=== PATIENT | female | born 1950 | race Hispanic/Latino ===

== ENCOUNTER 2018-04-14 13:27 | Emergency (ER) | payer OTHER ==
[2018-04-14 14:09] LABS: Urine Blood TRACE (NEG); Urine Glucose 3+ (NEG); Urine Protein NEGATIVE (NEG); Urine Specific Gravity <1.005 (1.005-1.030)
[2018-04-14 14:10] LABS: Absolute Lymphocytes (CBC) 2.6 K/uL (0.7-4.9); Absolute Monocytes 0.6 K/uL (0.1-1.3); Absolute Neutrophil 3.3 K/uL (1.8-8.0); Basophils % 0.9 % (0-1.3); Eosinophils % 2.1 % (0-4.4); Hematocrit 42.6 % (36.0-45.0); MCV 87.9 fL (80-100); MPV 9.6 fL (7.6-11.3); Monocytes % 8.9 % (3.3-12.3); RBC Red Blood Cell Count 4.85 M/uL (3.86-4.86)
[2018-04-14 14:11] LABS: Protime INR 1.09
[2018-04-14 14:29] LABS: BUN Blood Urea Nitrogen 16 mg/dL (7-18); Bicarbonate 27 mmol/L (21-32); Glucose Level 135 mg/dL (74-106); NT PRO-BNP 38 pg/mL (<125); Potassium 3.6 mmol/L (3.5-5.1); Sodium Level 139 mmol/L (136-145)
--- NOTE | 2018-04-14 14:45 | RAD REPORT ---
EXAM DESCRIPTION: John Single View04/14/2018 2:29 pm CLINICAL HISTORY: Chest pain COMPARISON: October 2017 FINDINGS: The lungs appear clear of acute infiltrate. The heart is normal size IMPRESSION: No acute abnormalities displayed
[2018-04-14] MEDS ORDERED: SUCRALFATE 1GM/10ML UCUP PO ONE (15:00)
--- NOTE | 2018-04-14 15:29 | ER ---
Nurse's Notes [facility] Name: Chris Jacobs Age: 67 yrs Sex: Female : 1950 Arrival Date: 04/14/2018 Time: 13:31 Bed 6 Private MD: Diagnosis: Epigastric pain Presentation: 04/14 13:34 Presenting complaint: Patient states: Sent from urgent care. Reports sensation of aj "something coming up" in chest and throat for 4 days. Denies Diaphoresis, N/V, indigestion. Transition of care: patient was not received from another setting of care. Onset of symptoms was April 10, 2018. Risk Assessment: Do you want to hurt yourself or someone else? Patient reports no desire to harm self or others. Initial Sepsis Screen: Does the patient meet any 2 criteria? No. Patient's initial sepsis screen is negative. Does the patient have a suspected source of infection? No. Patient's initial sepsis screen is negative. Care prior to arrival: None. 13:34 Method Of Arrival: Ambulatory aj 13:34 Acuity: FRANK 3 aj Triage Assessment: 13:36 General: Appears in no apparent distress. comfortable, Behavior is calm, cooperative, aj appropriate for age. Pain: Denies pain. Neuro: Level of Consciousness is awake, alert, obeys commands, Oriented to person, place, time, situation, Appropriate for age. Cardiovascular: Reports Pressure in sternum and throat. Respiratory: Airway is patent Respiratory effort is even, unlabored, Respiratory pattern is regular, symmetrical. GI: Patient currently denies indigestion, nausea, vomiting. Derm: Skin is intact, is healthy with good turgor, Skin is pink, warm \\T\\ dry. normal. Historical: - Allergies: 13:36 No Known Allergies; aj - Home Meds: 13:36 Aspir-81 81 mg Oral TbEC 1 tab once daily [Active]; atorvastatin 10 mg Oral tab 1 tab aj once daily [Active]; Fish Oil Oral [Active]; losartan 50 mg Oral tab 1 tab once daily [Active]; Trulicity 1.5 mg/0.5 mL subcutaneous pnij 0.5 mL once wkly [Active]; Xigduo XR 5-500 mg Oral TBph 2 tabs once daily [Active]; - PMHx: 13:36 High Cholesterol; Hypertension; Tachycardia; Diabetes - IDDM; aj - PSHx: 13:36 ; aj - Immunization history:: Adult Immunizations up to date. - Social history:: Smoking status: Patient/guardian denies using tobacco. - Ebola Screening: : Patient negative for fever greater than or equal to 101.5 degrees Fahrenheit, and additional compatible Ebola Virus Disease symptoms Patient denies exposure to infectious person Patient denies travel to an Ebola-affected area in the 21 days before illness onset No symptoms or risks identified at this time. Screenin:55 Abuse screen: Denies threats or abuse. Denies injuries from another. Nutritional hj screening: No deficits noted. Tuberculosis screening: No symptoms or risk factors identified. Fall Risk None identified. Assessment: 13:55 Pain: Pain does not radiate. Pain began. hj 13:55 General: Appears in no apparent distress. uncomfortable, Behavior is calm, cooperative, hj appropriate for age. Neuro: Level of Consciousness is awake, alert, obeys commands, Oriented to person, place, time, situation, Appropriate for age. Cardiovascular: Reports chest pain, Heart tones S1 S2 present Capillary refill < 3 seconds Patient's skin is warm and dry. Respiratory: Airway is patent Respiratory effort is even, unlabored, Respiratory pattern is regular, symmetrical. GI: No signs and/or symptoms were reported involving the gastrointestinal system. : No signs and/or symptoms were reported regarding the genitourinary system. EENT: No signs and/or symptoms were reported regarding the EENT system. Derm: No signs and/or symptoms reported regarding the dermatologic system. Musculoskeletal: No signs and/or symptoms reported regarding the musculoskeletal system. 14:03 Reassessment: BP- 113/73; hold on to BP meds; MD notified;. hj 15:21 Reassessment: Patient and/or family updated on plan of care and expected duration. Pain hj level reassessed. Patient is alert, oriented x 3, equal unlabored respirations, skin warm/dry/pink. Patient states feeling better. Patient states symptoms have improved. Vital Signs: 13:36 BP 184 / 92; Pulse 85; Resp 17; Temp 98.4; Pulse Ox 99% on R/A; Weight 63.5 kg; Height aj 5 ft. 1 in. (154.94 cm) (R); 14:02 BP 113 / 73; Pulse 83; Resp 18; Pulse Ox 100% on R/A; hj 15:21 BP 107 / 67; Pulse 77; Resp 18; Pulse Ox 100% on R/A; hj 13:36 Body Mass Index 26.45 (63.50 kg, 154.94 cm) ED Course: 13:31 Patient arrived in ED. rg4 13:35 Triage completed. 13:36 Arm band placed on right wrist. Patient placed in an exam room. EKG completed in triage. Results shown to MD. 13:37 Demarcus Villegas, RN is Primary Nurse. 13:51 Hao Lamas MD is Attending Physician. 13:55 Patient has correct armband on for positive identification. Placed in gown. Bed in low hj position. Call light in reach. Side rails up X2. monitoring coordinator on. Pulse ox on. NIBP on. 13:55 Initial lab(s) drawn, by me, sent to lab. Inserted saline lock: 22 gauge in right hj antecubital area, using aseptic technique. Blood collected. 13:55 Patient maintains SpO2 saturation greater than 95% on room air. hj 14:28 XRAY Chest (1 view) In Process Unspecified. EDMS 15:36 No provider procedures requiring assistance completed. IV discontinued, intact, hj bleeding controlled, No redness/swelling at site. Pressure dressing applied. Administered Medications: 14:04 Not Given (BP- 113/73; aware;): hydrALAZINE 5 mg IV at calculated rate once hj 14:30 Drug: CarafATE 1 grams Route: PO; jb4 14:30 Follow up: Response: No adverse reaction [facility] 14:49 Follow up: Response: No adverse reaction hj Outcome: 15:28 Discharge ordered by . 15:36 Discharged to home ambulatory. hj 15:36 Condition: stable 15:36 Discharge instructions given to patient, Instructed on discharge instructions, follow up and referral plans. medication usage, Demonstrated understanding of instructions, follow-up care, medications, Prescriptions given X 1. 15:37 Patient left the ED. hj Signatures: Dispatcher [employer] EDMS Susy Shannon RN RN Demarcus Villegas RN RN hj Garcia, Rubi rg4 Carlos Lezama RN RN jb4 Hao Lamas MD MD
--- NOTE | 2018-04-14 15:29 | EDPHYS ---
Physician Documentation [facility] Name: Chris Jacobs Age: 67 yrs Sex: Female : 1950 Arrival Date: 04/14/2018 Time: 13:31 Bed 6 Private MD: ED Physician Hao Lamas HPI: 04/14 15:14 This 67 yrs old Female presents to ER via Ambulatory with complaints of Chest gs Tightness. 15:14 The patient or guardian reports chest pain that is located primarily in the anterior gs chest wall. Onset: 2 day(s) ago. The pain does not radiate. Associated signs and symptoms: Pertinent negatives: shortness of breath. The chest pain is described as tightness. Duration: The patient or guardian reports a single episode, that is still ongoing. Severity of pain: At its worst the pain was moderate in the emergency department the pain is unchanged. The patient has experienced similar episodes in the past, a few times. Historical: - Allergies: 13:36 No Known Allergies; aj - Home Meds: 13:36 Aspir-81 81 mg Oral TbEC 1 tab once daily [Active]; atorvastatin 10 mg Oral tab 1 tab aj once daily [Active]; Fish Oil Oral [Active]; losartan 50 mg Oral tab 1 tab once daily [Active]; Trulicity 1.5 mg/0.5 mL subcutaneous pnij 0.5 mL once wkly [Active]; Xigduo XR 5-500 mg Oral TBph 2 tabs once daily [Active]; - PMHx: 13:36 High Cholesterol; Hypertension; Tachycardia; Diabetes - IDDM; aj - PSHx: 13:36 ; aj - Immunization history:: Adult Immunizations up to date. - Social history:: Smoking status: Patient/guardian denies using tobacco. - Ebola Screening: : Patient negative for fever greater than or equal to 101.5 degrees Fahrenheit, and additional compatible Ebola Virus Disease symptoms Patient denies exposure to infectious person Patient denies travel to an Ebola-affected area in the 21 days before illness onset No symptoms or risks identified at this time. ROS: 15:14 All other systems are negative. gs Exam: 15:14 Head/Face: Normocephalic, atraumatic. Eyes: Pupils equal round and reactive to light, gs extra-ocular motions intact. Lids and lashes normal. Conjunctiva and sclera are non-icteric and not injected. Cornea within normal limits. Periorbital areas with no swelling, redness, or edema. ENT: Nares patent. No nasal discharge, no septal abnormalities noted. Tympanic membranes are normal and external auditory canals are clear. Oropharynx with no redness, swelling, or masses, exudates, or evidence of obstruction, uvula midline. Mucous membranes moist. Neck: Trachea midline, no thyromegaly or masses palpated, and no cervical lymphadenopathy. Supple, full range of motion without nuchal rigidity, or vertebral point tenderness. No Meningismus. Chest/axilla: Normal chest wall appearance and motion. Nontender with no deformity. No lesions are appreciated. Cardiovascular: Regular rate and rhythm with a normal S1 and S2. No gallops, murmurs, or rubs. Normal PMI, no JVD. No pulse deficits. Respiratory: Lungs have equal breath sounds bilaterally, clear to auscultation and percussion. No rales, rhonchi or wheezes noted. No increased work of breathing, no retractions or nasal flaring. Abdomen/GI: Soft, non-tender, with normal bowel sounds. No distension or tympany. No guarding or rebound. No evidence of tenderness throughout. Back: No spinal tenderness. No costovertebral tenderness. Full range of motion. Skin: Warm, dry with normal turgor. Normal color with no rashes, no lesions, and no evidence of cellulitis. MS/ Extremity: Pulses equal, no cyanosis. Neurovascular intact. Full, normal range of motion. Neuro: Awake and alert, GCS 15, oriented to person, place, time, and situation. Cranial nerves II-XII grossly intact. Motor strength 5/5 in all extremities. Sensory grossly intact. Cerebellar exam normal. Normal gait. 15:14 Constitutional: The patient appears alert, awake. 15:14 ECG was reviewed by the Attending Physician. Vital Signs: 13:36 BP 184 / 92; Pulse 85; Resp 17; Temp 98.4; Pulse Ox 99% on R/A; Weight 63.5 kg; Height aj 5 ft. 1 in. (154.94 cm) (R); 14:02 BP 113 / 73; Pulse 83; Resp 18; Pulse Ox 100% on R/A; hj 15:21 BP 107 / 67; Pulse 77; Resp 18; Pulse Ox 100% on R/A; hj 13:36 Body Mass Index 26.45 (63.50 kg, 154.94 cm) aj MDM: 14:04 Patient medically screened. gs 15:14 Differential diagnosis: coronary artery disease chest wall pain, gastroesophageal gs reflux disease (GERD). Data reviewed: vital signs, nurses notes. Response to treatment: the patient's symptoms have resolved after treatment, and as a result, I will discharge patient. 04/14 13:53 Order name: Basic Metabolic Panel; Complete Time: 14:31 04/14 13:53 Order name: CBC with Diff; Complete Time: 14:31 04/14 13:53 Order name: NT PRO-BNP; Complete Time: 14:31 04/14 13:53 Order name: PT-INR; Complete Time: 14:31 04/14 13:53 Order name: Troponin (emerg Dept Use Only); Complete Time: 14:31 04/14 13:59 Order name: Urine Dipstick--Ancillary (enter results); Complete Time: 14:31 04/14 13:53 Order name: XRAY Chest (1 view); Complete Time: 15:09 04/14 13:53 Order name: EKG; Complete Time: 13:53 04/14 13:53 Order name: Cardiac monitoring; Complete Time: 14:00 04/14 13:53 Order name: EKG - Nurse/Tech; Complete Time: 14:00 04/14 13:53 Order name: IV Saline Lock; Complete Time: 14:00 04/14 13:53 Order name: Labs collected and sent; Complete Time: 14:00 04/14 13:53 Order name: O2 Per Protocol; Complete Time: 14:00 04/14 13:53 Order name: O2 Sat Monitoring; Complete Time: 14:00 04/14 13:53 Order name: Urine Dipstick-Ancillary (obtain specimen); Complete Time: 14:00 gs EC:14 Rate is 81 beats/min. Rhythm is regular. TN interval is normal. QRS interval is normal. gs T waves are Normal. No ST changes noted. Clinical impression: Normal ECG. Interpreted by me. Administered Medications: 14:04 Not Given (BP- 113/73; MD aware;): hydrALAZINE 5 mg IV at calculated rate once hj 14:30 Drug: CarafATE 1 grams Route: PO; jb4 14:30 Follow up: Response: No adverse reaction jb4 14:49 Follow up: Response: No adverse reaction hj Disposition: 04/14/18 15:28 Discharged to Home. Impression: Epigastric pain. - Condition is Stable. - Discharge Instructions: Abdominal Pain, Adult, Nonspecific Chest Pain. - Prescriptions for Carafate 100 mg/mL Oral suspension - take 10 milliliter by ORAL route 4 times per day As needed on an empty stomach 1 hour before meals and at bedtime; 250 milliliter. - Medication Reconciliation Form, Thank You Letter, Antibiotic Education, Prescription Opioid Use form. - Follow up: Private Physician; When: 2 - 3 days; Reason: Re-evaluation by your physician. Signatures: Dispatcher [employer] EDSusy Currie RN Demarcus Bartlett RN RN Carlos Lawton RN RN jb4 Hao Lamas MD MD gs Corrections: (The following items were deleted from the chart) 15:37 15:28 04/14/2018 15:28 Discharged to Home. Impression: Epigastric pain. Condition is hj Stable. Forms are Medication Reconciliation Form, Thank You Letter, Antibiotic Education, Prescription Opioid Use. Follow up: Private Physician; When: 2 - 3 days; Reason: Re-evaluation by your physician. gs
--- NOTE | 2018-04-16 07:53 | EKG ---
Test Date: 2018-04-14 Test Time: 13:38:43 Wire Stitcher Operator: FAUSTO MEASUREMENT RESULTS: Intervals: Rate: 81 AK: 144 QRSD: 88 QT: 402 QTc: 466 Keyes: P: -24 AK: 144 QRS: 53 T: 28 INTERPRETIVE STATEMENTS: Normal sinus rhythm Normal ECG Compared to ECG 11/11/2017 00:55:19 No significant changes Electronically Signed On 04-16-18 07:51:28 CDT by Carlos Guerin
== END 2018-04-14 15:37 | disposition home or self-care (01) ==
LOC: ER 13:27
DX: R10.13 Epigastric pain (principal); E78.00 Pure hypercholesterolemia, unspecified; I10 Essential (primary) hypertension; E11.9 Type 2 diabetes mellitus without complications; Z79.4 Long term (current) use of insulin
CPT/HCPCS: 36415; 71045; 80048; 81003; 83880; 84484; 85025; 85610; 93005; 99285

== ENCOUNTER 2018-07-14 20:56 | Emergency (ER) | payer OTHER ==
[2018-07-14] MEDS ORDERED: ASPIRIN 81 MG CHEWABLE TABLET ONE (21:16)
[2018-07-14] MEDS ORDERED: METOPROLOL TARTRATE 5 MG/5 ML INJ IV ONE (21:16)
[2018-07-14 21:44] LABS: Absolute Lymphocytes (CBC) 4.1 K/uL (0.7-4.9); Absolute Monocytes 0.7 K/uL (0.1-1.3); Absolute Neutrophil 2.8 K/uL (1.8-8.0); Basophils % 1.2 % (0-1.3); Eosinophils % 2.2 % (0-4.4); Hematocrit 44.3 % (36.0-45.0); Lymphocytes % 52.5 % (15.3-44.8); MCH 30.5 pg (27.0-35.0); MCV 90.2 fL (80-100); MPV 9.7 fL (7.6-11.3); Monocytes % 9.1 % (3.3-12.3); RBC Red Blood Cell Count 4.91 M/uL (3.86-4.86)
[2018-07-14 21:47] LABS: Protime INR 1.01
[2018-07-14 21:55] LABS: Urine Blood NEGATIVE (NEG); Urine Glucose 2+ (NEG); Urine Protein NEGATIVE (NEG); Urine pH 6.5 (5.0-7.0)
--- NOTE | 2018-07-14 22:18 | RAD REPORT ---
EXAM DESCRIPTION: RAD - Chest Single View - 07/14/2018 10:11 pm CLINICAL HISTORY: CHEST PAIN Chest pain. COMPARISON: Chest Single View dated 04/14/2018; Chest Single View dated 11/10/2017 FINDINGS: Portable technique limits examination quality. The lungs are grossly clear. The heart is normal in size. No displaced fractures. IMPRESSION: No acute intrathoracic process suspected.
[2018-07-14 22:28] LABS: ALT/SGPT 48 U/L (12-78); AST/SGOT 37 U/L (15-37); Albumin 4.2 g/dL (3.4-5.0); Alkaline Phosphatase 148 U/L (45-117); BUN Blood Urea Nitrogen 18 mg/dL (7-18); Bicarbonate 26 mmol/L (21-32); Bilirubin Direct 0.1 mg/dL (0-0.2); Bilirubin Total 0.6 mg/dL (0.2-1.0); Glucose Level 168 mg/dL (74-106); Magnesium 2.1 mg/dL (1.8-2.4); NT PRO-BNP 39 pg/mL (<125); Potassium 3.8 mmol/L (3.5-5.1); Protein, Total 7.8 g/dL (6.4-8.2); Sodium Level 140 mmol/L (136-145); Troponin (Emerg Dept Use Only) < 0.02 ng/mL (0.0-0.045)
--- NOTE | 2018-07-15 00:18 | ER ---
Nurse's Notes [facility] Name: Chris Jacobs Age: 67 yrs Sex: Female : 1950 Arrival Date: 07/14/2018 Time: 20:59 Bed 4 Private MD: Diagnosis: Chest pain. Palpitations. Presentation: 07/14 21:03 Presenting complaint: Patient states: Every once and a while my heart starts racing, la1 its happening now and I am having chest pain. Transition of care: patient was not received from another setting of care. Onset of symptoms was July 14, 2018. Risk Assessment: Do you want to hurt yourself or someone else? Patient reports no desire to harm self or others. Initial Sepsis Screen: Does the patient meet any 2 criteria? No. Patient's initial sepsis screen is negative. Does the patient have a suspected source of infection? No. Patient's initial sepsis screen is negative. Care prior to arrival: None. 21:03 Method Of Arrival: Wheelchair la1 21:03 Acuity: FRANK 2 la1 Triage Assessment: 21:20 General: Appears in no apparent distress. uncomfortable, Behavior is. ao Historical: - Allergies: 21:29 No Known Allergies; ao - Home Meds: 21:29 Aspir-81 81 mg Oral TbEC 1 tab once daily [Active]; atorvastatin 10 mg Oral tab 1 tab ao once daily [Active]; Xigduo XR 5-500 mg oral TBph 2 tabs once daily [Active]; losartan 50 mg Oral tab 1 tab once daily [Active]; Fish Oil Oral [Active]; Trulicity 1.5 mg/0.5 mL subcutaneous pnij 0.5 mL once wkly [Active]; - PMHx: 21:29 Diabetes - IDDM; High Cholesterol; Hypertension; Tachycardia; ao - PSHx: 21:29 ; ao - Immunization history:: Adult Immunizations up to date. - Social history:: Smoking status: Patient/guardian denies using tobacco. - Ebola Screening: : Patient negative for fever greater than or equal to 101.5 degrees Fahrenheit, and additional compatible Ebola Virus Disease symptoms Patient denies exposure to infectious person Patient denies travel to an Ebola-affected area in the 21 days before illness onset. Screenin:20 Abuse screen: Denies threats or abuse. Denies injuries from another. Nutritional ao screening: No deficits noted. Tuberculosis screening: No symptoms or risk factors identified. Fall Risk None identified. Assessment: 21:21 General: Appears in no apparent distress. comfortable, Behavior is calm, cooperative, ao appropriate for age. Pain: Complains of pain in chest Pain does not radiate. Pain currently is 6 out of 10 on a pain scale. Neuro: Level of Consciousness is awake, alert, obeys commands, Oriented to person, place, time, situation, Appropriate for age Moves all extremities. Full function Speech is normal, Facial symmetry appears normal. Cardiovascular: No deficits noted. Respiratory: Airway is patent Respiratory effort is even, unlabored, Respiratory pattern is regular, symmetrical. GI: Abdomen is obese. : No signs and/or symptoms were reported regarding the genitourinary system. EENT: No signs and/or symptoms were reported regarding the EENT system. Derm: Skin is intact, Skin is pink, warm \T\ dry. normal, Skin temperature is warm. Musculoskeletal: Circulation, motion, and sensation intact. Range of motion: intact in all extremities. 22:19 Reassessment: Patient appears in no apparent distress at this time. Patient and/or ao family updated on plan of care and expected duration. Pain level reassessed. 23:29 Reassessment: Patient appears in no apparent distress at this time. Patient and/or ao family updated on plan of care and expected duration. Pain level reassessed. Waiting on second Troponin result. 07/15 00:12 Reassessment: Patient appears in no apparent distress at this time. Patient and/or ao family updated on plan of care and expected duration. Pain level reassessed. Second troponin negative. Waiting on DC orders. Vital Signs: 07/14 21:04 Pulse 176; la1 21:05 BP 185 / 115; Pulse 105; Resp 16; Pulse Ox 96% ; ao 21:13 BP 154 / 98; Pulse 95; Resp 16; Temp 98.8(O); Pulse Ox 98% on R/A; Weight 83.46 kg; ao Height 5 ft. 4 in. (162.56 cm); Pain 0/10; 22:19 BP 138 / 88; Pulse 89; Resp 16; Pulse Ox 99% on R/A; Pain 0/10; ao 23:28 BP 121 / 93; Pulse 86; Resp 16; Pulse Ox 98% ; ea 23:29 BP 121 / 93; Pulse 83; Resp 18; Pulse Ox 100% on R/A; Pain 0/10; ao 07/15 00:12 BP 132 / 84; Pulse 81; Resp 18; Pulse Ox 98% on R/A; Pain 0/10; ao 07/14 21:13 Body Mass Index 31.58 (83.46 kg, 162.56 cm) ao ED Course: 07/14 20:59 Patient arrived in ED. es 21:04 Keenan Rivera MD is Attending Physician. dwayne 21:04 Triage completed. la1 21:05 Inserted saline lock: 20 gauge in right antecubital area, using aseptic technique. ea Blood collected. 21:12 Rob Bowser, RN is Primary Nurse. ao 21:18 Arm band placed on right wrist. Patient placed in an exam room, on a stretcher, on ao scientific specialist, on pulse oximetry, Patient notified of wait time. 21:33 Patient has correct armband on for positive identification. labor conciliator on. Pulse ao ox on. NIBP on. 22:07 XRAY Chest (1 view) In Process Unspecified. EDMS 07/15 00:25 No provider procedures requiring assistance completed. IV discontinued, intact, ao bleeding controlled, No redness/swelling at site. Pressure dressing applied. Administered Medications: 07/14 21:10 Drug: Lopressor 5 mg Route: IVP; Site: right antecubital; ao 22:21 Follow up: Response: No adverse reaction ao 21:10 Drug: Aspirin Chewable Tablet 162 mg Route: PO; ao 22:21 Follow up: Response: No adverse reaction ao Outcome: 07/15 00:17 Discharge ordered by . dwayne 00:25 Discharged to home ambulatory. ao 00:25 Condition: stable 00:25 Discharge instructions given to patient, Instructed on discharge instructions, follow up and referral plans. Demonstrated understanding of instructions, follow-up care, medications, Prescriptions given X 1. 00:26 Patient left the ED. ao Signatures: Dispatcher [employer] EDMS Keenan Rivera MD MD pkl Salyer, Edna es Attema, Lee RN GRECIA la1 Rob Bowser RN RN ao Antunez, Elena, RN RN ea
--- NOTE | 2018-07-15 00:19 | EDPHYS ---
Physician Documentation [facility] Name: Chris Jacobs Age: 67 yrs Sex: Female : 1950 Arrival Date: 07/14/2018 Time: 20:59 Bed 4 Private MD: ED Physician Keenan Rivera HPI: 07/14 21:35 This 67 yrs old Female presents to ER via Wheelchair with complaints of Rapid pkl heart beat,chest pressure. 21:35 The patient or guardian reports chest pain that is located primarily in the substernal pkl area. Onset: just prior to arrival. The pain does not radiate. Associated signs and symptoms: Pertinent positives: palpitations. The chest pain is described as a pressure. Historical: - Allergies: 21:29 No Known Allergies; ao - Home Meds: 21:29 Aspir-81 81 mg Oral TbEC 1 tab once daily [Active]; atorvastatin 10 mg Oral tab 1 tab ao once daily [Active]; Xigduo XR 5-500 mg oral TBph 2 tabs once daily [Active]; losartan 50 mg Oral tab 1 tab once daily [Active]; Fish Oil Oral [Active]; Trulicity 1.5 mg/0.5 mL subcutaneous pnij 0.5 mL once wkly [Active]; - PMHx: 21:29 Diabetes - IDDM; High Cholesterol; Hypertension; Tachycardia; ao - PSHx: 21:29 ; ao - Immunization history:: Adult Immunizations up to date. - Social history:: Smoking status: Patient/guardian denies using tobacco. - Ebola Screening: : Patient negative for fever greater than or equal to 101.5 degrees Fahrenheit, and additional compatible Ebola Virus Disease symptoms Patient denies exposure to infectious person Patient denies travel to an Ebola-affected area in the 21 days before illness onset. ROS: 21:35 Eyes: Negative for injury, pain, redness, and discharge, ENT: Negative for injury, pkl pain, and discharge, Neck: Negative for injury, pain, and swelling. 21:35 Cardiovascular: Positive for chest pain, palpitations. 21:35 Respiratory: Negative for cough, shortness of breath. 21:35 Abdomen/GI: Negative for abdominal pain, nausea, vomiting, and diarrhea. 21:35 Back: Negative for acute changes. 21:35 : Negative for urinary symptoms. 21:35 MS/extremity: Negative for acute changes. 21:35 Skin: Negative for rash. 21:35 Neuro: Negative for altered mental status. Exam: 21:35 Head/Face: Normocephalic, atraumatic. Eyes: Pupils equal round and reactive to light, pkl extra-ocular motions intact. Lids and lashes normal. Conjunctiva and sclera are non-icteric and not injected. Cornea within normal limits. Periorbital areas with no swelling, redness, or edema. ENT: Nares patent. No nasal discharge, no septal abnormalities noted. Tympanic membranes are normal and external auditory canals are clear. Oropharynx with no redness, swelling, or masses, exudates, or evidence of obstruction, uvula midline. Mucous membranes moist. Neck: Trachea midline, no thyromegaly or masses palpated, and no cervical lymphadenopathy. Supple, full range of motion without nuchal rigidity, or vertebral point tenderness. No Meningismus. Chest/axilla: Normal chest wall appearance and motion. Nontender with no deformity. No lesions are appreciated. 21:35 Cardiovascular: Rate: tachycardic, actual rate is 170 bpm, Rhythm: regular. 21:35 ECG was reviewed by the Attending Physician. 21:35 Respiratory: the patient does not display signs of respiratory distress, Respirations: normal, Breath sounds: are clear throughout. 21:35 Abdomen/GI: Bowel sounds: normal, Palpation: abdomen is soft and non-tender, in all quadrants. 21:35 Back: Exam negative for acute changes. 21:35 : Exam negative for acute changes. 21:35 Musculoskeletal/extremity: Exam is negative for acute changes. 21:35 Skin: Exam negative for rash. 21:35 Neuro: Orientation: is normal, Mentation: is normal, Cranial nerves: grossly normal, Motor: is normal. Vital Signs: 21:04 Pulse 176; la1 21:05 BP 185 / 115; Pulse 105; Resp 16; Pulse Ox 96% ; ao 21:13 BP 154 / 98; Pulse 95; Resp 16; Temp 98.8(O); Pulse Ox 98% on R/A; Weight 83.46 kg; ao Height 5 ft. 4 in. (162.56 cm); Pain 0/10; 22:19 BP 138 / 88; Pulse 89; Resp 16; Pulse Ox 99% on R/A; Pain 0/10; ao 23:28 BP 121 / 93; Pulse 86; Resp 16; Pulse Ox 98% ; ea 23:29 BP 121 / 93; Pulse 83; Resp 18; Pulse Ox 100% on R/A; Pain 0/10; ao 07/15 00:12 BP 132 / 84; Pulse 81; Resp 18; Pulse Ox 98% on R/A; Pain 0/10; ao 07/14 21:13 Body Mass Index 31.58 (83.46 kg, 162.56 cm) ao MDM: 07/14 21:04 Patient medically screened. pkl 07/15 00:14 Data reviewed: vital signs, nurses notes, lab test result(s), EKG, radiologic studies, pkl plain films. ED course: Patient feeling much better. Asymptomatic. Does not want to be admitted for further evaluation. Will follow up with her Master Carpenter ( Dr. Saunders ) next week.. 07/14 21:16 Order name: Basic Metabolic Panel; Complete Time: 23:21 ao 07/14 21:16 Order name: CBC with Diff; Complete Time: 22:05 ao 07/14 21:16 Order name: LFT's; Complete Time: 23:21 ao 07/14 21:16 Order name: Magnesium; Complete Time: 23:21 ao 07/14 21:16 Order name: NT PRO-BNP; Complete Time: 23:21 ao 07/14 21:16 Order name: PT-INR; Complete Time: 22:05 ao 07/14 21:16 Order name: Troponin (emerg Dept Use Only); Complete Time: 23:21 ao 07/14 21:16 Order name: XRAY Chest (1 view); Complete Time: 22:24 ao 07/14 21:16 Order name: EKG; Complete Time: 21:17 ao 07/14 21:16 Order name: Cardiac monitoring; Complete Time: 21:18 ao 07/14 21:44 Order name: Urine Dipstick--Ancillary (enter results); Complete Time: 22:05 mw2 07/14 23:15 Order name: Troponin (emerg Dept Use Only); Complete Time: 00:13 ao 07/14 21:16 Order name: EKG - Nurse/Tech; Complete Time: 21:18 ao 07/14 21:16 Order name: IV Saline Lock; Complete Time: 21:18 ao 07/14 21:16 Order name: Labs collected and sent; Complete Time: 21:18 ao 07/14 21:16 Order name: O2 Per Protocol; Complete Time: :18 ao 07/14 21:16 Order name: O2 Sat Monitoring; Complete Time: :18 ao Administered Medications: 07/14 21:10 Drug: Lopressor 5 mg Route: IVP; Site: right antecubital; ao 22:21 Follow up: Response: No adverse reaction ao 21:10 Drug: Aspirin Chewable Tablet 162 mg Route: PO; ao 22:21 Follow up: Response: No adverse reaction ao Disposition: 07/15/18 00:17 Discharged to Home. Impression: Chest pain. Palpitations.. - Condition is Stable. - Prescriptions for Carvedilol 6.25 mg Oral Tablet - take 1 tablet by ORAL route 2 times per day with food; 60 tablet. - Medication Reconciliation Form, Thank You Letter, Antibiotic Education, Prescription Opioid Use form. - Follow up: Private Physician; When: 2 - 3 days; Reason: Re-evaluation by your physician. - Problem is new. - Symptoms are resolved. Signatures: Dispatcher [employer] EDVT Keenan Rivera MD MD pkl Rob Bowser RN RN ao Corrections: (The following items were deleted from the chart) 07/15 00:26 00:17 07/15/2018 00:17 Discharged to Home. Impression: Chest pain. Palpitations.. ao Condition is Stable. Forms are Medication Reconciliation Form, Thank You Letter, Antibiotic Education, Prescription Opioid Use. Follow up: Private Physician; When: 2 - 3 days; Reason: Re-evaluation by your physician. Problem is new. Symptoms are resolved. pkl
--- NOTE | 2018-07-15 11:55 | EKG ---
Test Date: 2018-07-14 Test Time: 21:07:21 Show Girl: AG3 MEASUREMENT RESULTS: Intervals: Rate: 99 VT: 148 QRSD: 84 QT: 378 QTc: 485 [place]: P: -25 VT: 148 QRS: 62 T: 36 INTERPRETIVE STATEMENTS: Normal sinus rhythm Normal ECG Compared to ECG 04/14/2018 13:38:43 No significant changes Electronically Signed On 07-15-18 11:54:18 MELTER SUPERVISOR E[employer]URNACE by Carlos Guerin
== END 2018-07-15 00:26 | disposition home or self-care (01) ==
LOC: ER 20:56
DX: R07.9 Chest pain, unspecified (principal); R00.2 Palpitations; E11.9 Type 2 diabetes mellitus without complications; E78.00 Pure hypercholesterolemia, unspecified; I10 Essential (primary) hypertension; Z79.4 Long term (current) use of insulin; Z79.82 Long term (current) use of aspirin; Z79.899 Other long term (current) drug therapy
CPT/HCPCS: 36415; 71045; 80048; 80076; 81003; 83735; 83880; 84484; 85025; 85610; 93005; 96374; 99284

== ENCOUNTER 2018-10-13 01:37 | Emergency (ER) | payer OTHER ==
[2018-10-13 02:16] LABS: Absolute Lymphocytes (CBC) 3.6 K/uL (0.7-4.9); Absolute Monocytes 0.6 K/uL (0.1-1.3); Absolute Neutrophil 2.7 K/uL (1.8-8.0); Basophils % 1.1 % (0-1.3); Eosinophils % 1.8 % (0-4.4); Hematocrit 44.6 % (36.0-45.0); Lymphocytes % 50.8 % (15.3-44.8); MPV 9.6 fL (7.6-11.3); Monocytes % 8.1 % (3.3-12.3); RBC Red Blood Cell Count 5.03 M/uL (3.86-4.86)
[2018-10-13 02:17] LABS: Protime INR 0.97
[2018-10-13] MEDS ORDERED: METOPROLOL TARTRATE 5 MG/5 ML INJ IV ONE (02:42)
[2018-10-13 02:44] LABS: ALT/SGPT 40 U/L (12-78); AST/SGOT 32 U/L (15-37); Albumin 4.4 g/dL (3.4-5.0); Alkaline Phosphatase 151 U/L (45-117); BUN Blood Urea Nitrogen 24 mg/dL (7-18); Bicarbonate 27 mmol/L (21-32); Bilirubin Direct 0.1 mg/dL (0-0.2); Bilirubin Total 0.5 mg/dL (0.2-1.0); Glucose Level 176 mg/dL (74-106); Magnesium 2.1 mg/dL (1.8-2.4); NT PRO-BNP 30 pg/mL (<125); Potassium 3.7 mmol/L (3.5-5.1); Protein, Total 7.8 g/dL (6.4-8.2); Sodium Level 141 mmol/L (136-145); Troponin (Emerg Dept Use Only) < 0.02 ng/mL (0.0-0.045)
--- NOTE | 2018-10-13 03:14 | ER ---
Nurse's Notes [facility] Name: Chris Jacobs Age: 68 yrs Sex: Female : 1950 Arrival Date: 10/13/2018 Time: 01:38 Bed 4 Private MD: Diagnosis: Palpitations Presentation: 10/13 01:47 Presenting complaint: Patient states: she started having palpitations a few minutes ago bb denies chest pain pt is wearing heart monitor since Monday. Transition of care: patient was not received from another setting of care. Onset of symptoms was October 13, 2018. Risk Assessment: Do you want to hurt yourself or someone else? Patient reports no desire to harm self or others. Initial Sepsis Screen: Does the patient meet any 2 criteria? No. Patient's initial sepsis screen is negative. Does the patient have a suspected source of infection? No. Patient's initial sepsis screen is negative. Care prior to arrival: None. 01:47 Method Of Arrival: Ambulatory bb 01:47 Acuity: FRANK 3 bb Historical: - Allergies: 01:51 No Known Allergies; bb - Home Meds: 01:51 Aspir-81 81 mg Oral TbEC 1 tab once daily [Active]; atorvastatin 10 mg Oral tab 1 tab bb once daily [Active]; Fish Oil Oral [Active]; losartan 50 mg Oral tab 1 tab once daily [Active]; Trulicity 1.5 mg/0.5 mL subcutaneous pnij 0.5 mL once wkly [Active]; Xigduo XR 5-500 mg Oral TBph 2 tabs once daily [Active]; - PMHx: 01:51 Diabetes - IDDM; High Cholesterol; Hypertension; Tachycardia; bb - PSHx: 01:51 ; bb - Immunization history:: Adult Immunizations up to date. - Social history:: Smoking status: Patient/guardian denies using tobacco, Patient/guardian denies using alcohol, Patient/guardian denies using The patient lives alone, with family. - Ebola Screening: : No symptoms or risks identified at this time. - Family history:: not pertinent. - Hospitalizations: : No recent hospitalization is reported. Screenin:00 Abuse screen: Denies threats or abuse. Denies injuries from another. Nutritional tl1 screening: No deficits noted. Tuberculosis screening: No symptoms or risk factors identified. Never had TB. Fall Risk IV access (20 points). Assessment: 01:53 General: Appears in no apparent distress. comfortable, Behavior is calm, cooperative, tl1 appropriate for age. Pain: Denies pain. denies pain Pain began suddenly. Pain: Pain began suddenly, denies pain. Neuro: Neuro: Level of Consciousness is awake, alert, obeys commands, Oriented to person, place, time, situation. Cardiovascular: Reports palpitations, Denies chest pain, Capillary refill < 3 seconds Patient's skin is warm and dry. Respiratory: Airway is patent Trachea midline Respiratory effort is even, unlabored, Breath sounds are clear bilaterally. Denies shortness of breath. GI: Abdomen is non-distended, Bowel sounds present X 4 quads. Abd is soft and non tender X 4 quads. : No signs and/or symptoms were reported regarding the genitourinary system. EENT: No signs and/or symptoms were reported regarding the EENT system. 03:19 Reassessment: Patient and/or family updated on plan of care and expected duration. Pain tl1 level reassessed. Patient is alert, oriented x 3, equal unlabored respirations, skin warm/dry/pink. Patient denies pain at this time. Patient states feeling better. Patient states symptoms have improved. Vital Signs: 01:51 BP 155 / 90; Pulse 105; Resp 16 S; Temp 97.8(TE); Pulse Ox 98% on R/A; Weight 63.5 kg bb (R); Height 5 ft. 1 in. (154.94 cm) (R); Pain 0/10; 02:08 BP 129 / 81; Pulse 92; Resp 18; Pulse Ox 95% on R/A; Pain 0/10; tl1 02:37 BP 125 / 75; Pulse 89; Resp 19; Pulse Ox 99% on R/A; Pain 0/10; tl1 03:14 BP 120 / 86; Pulse 88; Resp 20; Temp 97.8; Pulse Ox 96% on R/A; Pain 0/10; tl1 01:51 Body Mass Index 26.45 (63.50 kg, 154.94 cm) bb ED Course: 01:38 Patient arrived in ED. ds1 01:44 Santy Fermin MD is Attending Physician. ma2 01:49 Triage completed. bb 01:51 Arm band placed on Patient placed in an exam room, on a stretcher, on carton and can supply supervisor, bb on pulse oximetry. EKG completed in triage. Results shown to MD. Family accompanied patient. 01:53 No provider procedures requiring assistance completed. Inserted saline lock: 20 gauge tl1 in left antecubital area, using aseptic technique. Blood collected. Patient maintains SpO2 saturation greater than 95% on room air. 01:58 X-ray completed. Portable x-ray completed in exam room. Patient tolerated procedure az well. 02:00 Patient has correct armband on for positive identification. Placed in gown. Bed in low tl1 position. Call light in reach. Side rails up X 1. Adult w/ patient. day haul youth supervisor on. Pulse ox on. NIBP on. Warm blanket given. 02:01 XRAY Chest (1 view) In Process Unspecified. EDMS 02:08 Dary Polk, RN is Primary Nurse. tl1 03:21 IV discontinued, intact, bleeding controlled, No redness/swelling at site. Pressure jd3 dressing applied. Administered Medications: 02:34 Drug: Metoprolol 2.5 mg Route: IVP; Site: left antecubital; jd3 03:15 Follow up: Response: No adverse reaction; Marked relief of symptoms tl1 Outcome: 03:14 Discharge ordered by . hilda 03:20 Discharged to home ambulatory, with family. jd3 03:20 Condition: stable 03:20 Discharge instructions given to patient, family, Instructed on discharge instructions, follow up and referral plans. Demonstrated understanding of instructions, follow-up care. 03:22 Patient left the ED. jd3 Signatures: Dispatcher [employer] [facility] Kandace Ridley ds1 Ciara Pinto RN RN bb Dary Polk RN RN tl1 Helder Luis RN RN jd3 Alzahri, Mohammad, MD MD ma2 Zavala, Araceli az
--- NOTE | 2018-10-13 03:14 | EDPHYS ---
Physician Documentation [facility] Name: Chris Jacobs Age: 68 yrs Sex: Female : 1950 Arrival Date: 10/13/2018 Time: 01:38 Bed 4 Private MD: ED Physician Santy Fermin HPI: 10/13 03:12 This 68 yrs old Female presents to ER via Ambulatory with complaints of ma2 Irregular Pulse. 03:12 The patient presents with a history of heart racing. Onset: The symptoms/episode ma2 began/occurred gradually, 1 day(s) ago. Duration: The patient or guardian reports a single episode. Modifying factors: The symptoms are aggravated by. Associated signs and symptoms: Pertinent positives: anxiety, Pertinent negatives: chest pain, fever, nausea, SOB, syncope, near-syncope. Severity of symptoms: At their worst the symptoms were moderate in the emergency department the symptoms have improved. The patient has experienced similar episodes in the past. Historical: - Allergies: 01:51 No Known Allergies; bb - Home Meds: 01:51 Aspir-81 81 mg Oral TbEC 1 tab once daily [Active]; atorvastatin 10 mg Oral tab 1 tab bb once daily [Active]; Fish Oil Oral [Active]; losartan 50 mg Oral tab 1 tab once daily [Active]; Trulicity 1.5 mg/0.5 mL subcutaneous pnij 0.5 mL once wkly [Active]; Xigduo XR 5-500 mg Oral TBph 2 tabs once daily [Active]; - PMHx: 01:51 Diabetes - IDDM; High Cholesterol; Hypertension; Tachycardia; bb - PSHx: 01:51 ; bb - Immunization history:: Adult Immunizations up to date. - Social history:: Smoking status: Patient/guardian denies using tobacco, Patient/guardian denies using alcohol, Patient/guardian denies using The patient lives alone, with family. - Ebola Screening: : No symptoms or risks identified at this time. - Family history:: not pertinent. - Hospitalizations: : No recent hospitalization is reported. ROS: 03:12 Constitutional: Negative for fever, chills, and weight loss, ENT: Negative for injury, ma2 pain, and discharge. 03:12 Respiratory: Negative for shortness of breath, cough, wheezing, and pleuritic chest pain, Abdomen/GI: Negative for abdominal pain, nausea, diarrhea, and constipation. 03:12 Cardiovascular: Positive for palpitations, Negative for chest pain, edema, orthopnea, acute changes. 03:12 All other systems are negative. Exam: 03:12 Constitutional: This is a well developed, well nourished patient who is awake, alert, ma2 and in no acute distress. ENT: Nares patent. No nasal discharge, no septal abnormalities noted. Tympanic membranes are normal and external auditory canals are clear. Oropharynx with no redness, swelling, or masses, exudates, or evidence of obstruction, uvula midline. Mucous membranes moist. Chest/axilla: Normal chest wall appearance and motion. Nontender with no deformity. No lesions are appreciated. Cardiovascular: Regular rate and rhythm with a normal S1 and S2. No gallops, murmurs, or rubs. Normal PMI, no JVD. No pulse deficits. Respiratory: Lungs have equal breath sounds bilaterally, clear to auscultation and percussion. No rales, rhonchi or wheezes noted. No increased work of breathing, no retractions or nasal flaring. Abdomen/GI: Soft, non-tender, with normal bowel sounds. No distension or tympany. No guarding or rebound. No evidence of tenderness throughout. MS/ Extremity: Pulses equal, no cyanosis. Neurovascular intact. Full, normal range of motion. Neuro: Awake and alert, GCS 15, oriented to person, place, time, and situation. Cranial nerves II-XII grossly intact. Motor strength 5/5 in all extremities. Sensory grossly intact. Cerebellar exam normal. Normal gait. Vital Signs: 01:51 BP 155 / 90; Pulse 105; Resp 16 S; Temp 97.8(TE); Pulse Ox 98% on R/A; Weight 63.5 kg bb (R); Height 5 ft. 1 in. (154.94 cm) (R); Pain 0/10; 02:08 BP 129 / 81; Pulse 92; Resp 18; Pulse Ox 95% on R/A; Pain 0/10; tl1 02:37 BP 125 / 75; Pulse 89; Resp 19; Pulse Ox 99% on R/A; Pain 0/10; tl1 03:14 BP 120 / 86; Pulse 88; Resp 20; Temp 97.8; Pulse Ox 96% on R/A; Pain 0/10; tl1 01:51 Body Mass Index 26.45 (63.50 kg, 154.94 cm) bb MDM: 01:44 Patient medically screened. ma2 03:12 Differential diagnosis: dehydration, stress disorder. Data reviewed: vital signs, ma2 nurses notes. Counseling: I had a detailed discussion with the patient and/or guardian regarding: the historical points, exam findings, and any diagnostic results supporting the discharge/admit diagnosis, the presence of at least one elevated blood pressure reading (>120/80) during this emergency department visit, the need for outpatient follow up. Response to treatment: the patient's symptoms have resolved after treatment. 10/13 01:45 Order name: Basic Metabolic Panel; Complete Time: 02:56 10/13 01:45 Order name: CBC with Diff; Complete Time: 02:24 10/13 01:45 Order name: LFT's; Complete Time: 02:56 10/13 01:45 Order name: Magnesium; Complete Time: 02:56 10/13 01:45 Order name: NT PRO-BNP; Complete Time: 02:56 10/13 01:45 Order name: PT-INR; Complete Time: 02:24 10/13 01:45 Order name: Troponin (emerg Dept Use Only); Complete Time: 02:56 10/13 01:45 Order name: XRAY Chest (1 view) 10/13 01:45 Order name: EKG; Complete Time: 01:47 10/13 01:45 Order name: Cardiac monitoring; Complete Time: :52 10/13 01:45 Order name: EKG - Nurse/Tech; Complete Time: :52 10/13 01:45 Order name: IV Saline Lock; Complete Time: :52 10/13 01:45 Order name: Labs collected and sent; Complete Time: :52 10/13 01:45 Order name: O2 Per Protocol; Complete Time: :52 10/13 01:45 Order name: O2 Sat Monitoring; Complete Time: 01:52 ma Administered Medications: 02:34 Drug: Metoprolol 2.5 mg Route: IVP; Site: left antecubital; jd3 03:15 Follow up: Response: No adverse reaction; Marked relief of symptoms tl1 Disposition: 10/13/18 03:14 Discharged to Home. Impression: Palpitations. - Condition is Stable. - Discharge Instructions: Palpitations. - Medication Reconciliation Form, Thank You Letter, Antibiotic Education, Prescription Opioid Use form. - Follow up: Private Physician; When: Tomorrow; Reason: Continuance of care. Signatures: Dispatcher [employer] EDCiara Catalan RN RN Helder Gamboa RN RN jd3 Santy Fermin MD MD ma2 Dary Polk RN tl1 Corrections: (The following items were deleted from the chart) 03:22 03:14 10/13/2018 03:14 Discharged to Home. Impression: Palpitations. Condition is jd3 Stable. Forms are Medication Reconciliation Form, Thank You Letter, Antibiotic Education, Prescription Opioid Use. Follow up: Private Physician; When: Tomorrow; Reason: Continuance of care. ma2
--- NOTE | 2018-10-13 11:57 | RAD REPORT ---
EXAM DESCRIPTION: RAD - Chest Single View - 10/13/2018 2:02 am CLINICAL HISTORY: PALPITATIONS Chest pain. COMPARISON: Chest Single View dated 07/14/2018; Chest Single View dated 04/14/2018; Chest Single View dated 11/10/2017 FINDINGS: Portable technique limits examination quality. The lungs are grossly clear. The heart is normal in size. No displaced fractures. IMPRESSION: No acute intrathoracic process suspected.
--- NOTE | 2018-10-15 07:41 | EKG ---
Test Date: 2018-10-13 Test Time: 01:48:12 Tool Room Lathe Operator: TL MEASUREMENT RESULTS: Intervals: Rate: 91 PA: 146 QRSD: 88 QT: 376 QTc: 462 [place]: P: -3 PA: 146 QRS: 50 T: 31 INTERPRETIVE STATEMENTS: Normal sinus rhythm with sinus arrhythmia Normal ECG Compared to ECG 07/14/2018 21:07:21 No significant changes Electronically Signed On 10-15-18 07:38:05 PHARMACY TECHNOLOGIST by Darío Rabago
== END 2018-10-13 03:22 | disposition home or self-care (01) ==
LOC: ER 01:37
DX: R00.2 Palpitations (principal); I10 Essential (primary) hypertension; E11.9 Type 2 diabetes mellitus without complications; E78.00 Pure hypercholesterolemia, unspecified; Z79.4 Long term (current) use of insulin
CPT/HCPCS: 36415; 71045; 80048; 80076; 83735; 83880; 84484; 85025; 85610; 93005; 96374; 99285

== ENCOUNTER 2019-07-31 08:22 | Day surgery (SDC) | payer OTHER ==
[2019-07-23 11:30] LABS: Absolute Lymphocytes (CBC) 2.3 K/uL (0.7-4.9); Basophils % 0.8 % (0-1.3); Hematocrit 42.2 % (36.0-45.0); Lymphocytes % 39.2 % (15.3-44.8); MPV 10.7 fL (7.6-11.3); RBC Red Blood Cell Count 4.81 M/uL (3.86-4.86)
[2019-07-23 11:43] LABS: Protime INR 1.04
[2019-07-23 11:59] LABS: Potassium 4.2 mmol/L (3.5-5.1)
--- NOTE | 2019-07-23 16:32 | EKG ---
Test Date: 2019-07-23 Test Time: 10:08:03 Shop Tech: PAYTON MEASUREMENT RESULTS: Intervals: Rate: 80 [place]: 144 QRSD: 90 QT: 392 QTc: 452 [place]: P: -24 [place]: 144 QRS: 72 T: 47 INTERPRETIVE STATEMENTS: Normal sinus rhythm with sinus arrhythmia Normal ECG Compared to ECG 10/13/2018 01:48:12 No significant changes Electronically Signed On 07-23-19 16:30:15 MANAGER ROOM by Darío Rabago
--- OUTSIDE RECORDS SUMMARY | 2019-07-31 08:40 | XMS REPORT ---
:1950 Author Organization [employer] Care Team Providers Name Role Phone Beverly Moon Provider Role Unavailable Allergies No Known Allergies Problems Problem Type Condition Code Onset Dates Condition Status Problem Irregular heartbeat I49.9 Active Problem Encounter for immunization Z23 Active Problem Essential (primary) hypertension I10 Active Problem Type 2 diabetes mellitus without E11.9 Active complication, without long-term current use of insulin Medications Medication Code Code Instructions Start End Date Status Dosage System Date Metoprolol [facility] 55634184973 50 MG Oral March 27, Active TAKE 1 Succinate ER 2019 TABLET BY MOUTH EVERY DAY Losartan ND 94249003005 50 MG Oral Inactive TAKE 1 Potassium TABLET BY MOUTH EVERY DAY Results No Known Results Summary Purpose [employer]ClinicalWorks Submission
--- OUTSIDE RECORDS SUMMARY | 2019-07-31 08:40 | XMS REPORT ---
[...] current use of insulin Medications Medication Code System Code Instructions Start Date End Date Status Dosage Tylenol # 3 NDC 0 300/30mg PO 6 HRS Jul 29, 2019 Aug 28, Active one tab PRN PAIN 2019 Results No Known Results Summary Purpose [employer] Submission
--- OUTSIDE RECORDS SUMMARY | 2019-07-31 08:40 | XMS REPORT ---
[...] without long-term current use of insulin Medications No Known Medications Results No Known Results Summary Purpose [employer] Submission
--- OUTSIDE RECORDS SUMMARY | 2019-07-31 08:40 | XMS REPORT ---
[...] Medications Medication Code System Code Instructions Start End Date Status [id number] 1.5 MG/0.5ML Active INJECT SUB Subcutaneous once 1.5 ML a week WEEKS FOR 90 DAYS Results No Known Results Summary Purpose [employer] Submission
--- OUTSIDE RECORDS SUMMARY | 2019-07-31 08:40 | XMS REPORT ---
:1950 Author Organization [employer] Care Team Providers Name Role Phone Rg Won Provider Role Unavailable Allergies, Adverse Reactions, Alerts Substance Reaction Event Type N.K.D.A. Info Not Available Non Drug Allergy Problems Problem Type Condition Code Onset Dates Condition Status Assessment Left hand pain M79.642 Active Problem Irregular heartbeat I49.9 Active Problem Encounter for immunization Z23 Active Problem Essential (primary) hypertension I10 Active Assessment Trigger middle finger of left hand M65.332 Active Assessment Trigger ring finger of left hand M65.342 Active Problem Type 2 diabetes mellitus without E11.9 Active complication, without long-term current use of insulin Medications Medication Code Code Instructions Start End Status Dosage System Date Date Meloxicam [facility] [address]-15 Active not defined Losartan [facility] [address]-59 Active not Potassium defined Aspirin [facility] 23743903666 81 MG Orally Aug 07, Active 1 tablet Once a day 2017 Lisinopril [facility] 81524348796 20 MG Orally May 23, Active 1 tablet Once a day 2018 Triazolam [facility] [address]-01 Active not defined Metoprolol [facility] 53162222243 50 MG Oral March 27, Active TAKE 1 Succinate ER 2019 TABLET BY MOUTH EVERY DAY Mobic [facility] 07995519697 7.5 MG Orally Active 1 tablet Once a day Tramadol HCl [facility] 53654068494 50 MG Jul 01, Active 1 tablet 2019 q6h as needed for pain Pioglitazone HCl [facility] [address]-04 Active not defined Xigduo XR [facility] 20566049773 5-1000 MG Oral Active TAKE 2 TABLETS BY MOUTH EVERY DAY OneTouch Verio [facility] 35657969199 - In Vitro Active CHECK BLOOD SUGAR 4 TIMES A DAY Trulicity [facility] 49751109961 1.5 MG/0.5ML Active INJECT Subcutaneous SUB 1.5 ML WEEKS FOR 90 DAYS Chlorhexidine [facility] [address]-29 Active not Gluconate defined Azithromycin [facility] [address]-57 Active not defined Hydrocodone-Acet [facility] [address]-47 Active not aminophen defined Mobic [facility] 51020396912 7.5 MG Orally Active 1 tablet Once a day Results No Known Results Summary Purpose [employer] Submission
[2019-07-31] MEDS ORDERED: NA CHLORIDE 0.9% 1,000 ML ONE (09:17)
[2019-07-31] MEDS ORDERED: CEFAZOLIN/SWI 1gm 1 GM/10 ML SYR ONE (09:17)
[2019-07-31] MEDS ORDERED: PROPOFOL 200 MG/20 ML VIAL IV ONE (11:03)
[2019-07-31] MEDS ORDERED: MIDAZOLAM HCL 2 MG/2 ML INJ ONE (11:03)
[2019-07-31] MEDS ORDERED: FENTANYL CITR 100 MCG/2 ML ONE (11:03)
[2019-07-31] MEDS ORDERED: LIDOCAINE 2% MPF 5 ML VIAL ONE (11:03)
[2019-07-31] MEDS ORDERED: KETOROLAC 30 MG/ML INJ ONE (11:03)
[2019-07-31] MEDS: BUPIVACAINE 0.25% PF 30 ML VIAL ONE ×2 (12:00→12:15)
--- NOTE | 2019-07-31 12:43 | P.BOP ---
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
[2019-07-31 13:09] VITALS: O2SAT 98
[2019-07-31] MEDS ORDERED: ONDANSETRON 4 MG/2 ML VIAL ONE (13:13)
[2019-07-31 14:48] VITALS: BP 142/70; TEMP 97
--- NOTE | 2019-08-01 02:42 | OP ---
Date of Procedure: 07/31/2019 Surgeon: Won Rg MD Preoperative Diagnosis: Left hand middle finger, ring finger trigger digits. Postoperative Diagnosis: Left hand middle finger, ring finger trigger digits. Procedure Performed: Left hand middle finger and ring finger A1 veronica release. Anesthesia: General LMA. Fluids: Per Anesthesia record. Estimated Blood Loss: 3 mL. Implants: None. Complications: None. Tourniquet Time: 23 minutes at 250 mmHg. Indication For Procedure: Chris Vazquez is a 69-year-old female, who presented to my clinic with signs and symptoms consistent with the left hand middle finger, ring finger trigger digits. The patient h ad failed conservative treatment including corticosteroid injections. I discussed with the patient a t length risks and benefits associated with operative and nonoperative treatment. She expressed unde rstanding and elected to proceed with operative treatment. Description Of Procedure: After informed consent was obtained, the patient was identified in the pre operative holding area. The left upper extremity was marked. The patient was then brought back to [facility] operating room, transferred to the operating table in supine fashion, placed under general LMA ane sthesia. The left upper extremity was then prepped and draped in usual sterile fashion. A time-out was initiated. The correct patient and procedure were confirmed and identified. The patient did rec eive preoperative prophylactic antibiotics. The left upper extremity was then exsanguinated and the tourniquet was inflated to 250 mmHg. Attention was then taken to the left hand middle finger, 1 cm i ncision was placed centered over the A1 veronica over the volar hand. Dissection was then taken down t o the A1 veronica using Ragnell. The flexor tendon sheath was then split, divided using a 15 blade. P art of the flexor tendon sheath was excised to minimize risk for recurrence. Flexor tendons were the n brought out through the incision using the Ragnell with full excursion of the tendons without any t riggering noted. Next, attention was taken to the ring finger where the 1 cm incision was placed vida tered over the A1 veronica ring finger over the volar hand. Dissection was then taken down to the flex or tendon sheath using a Ragnell. The flexor tendon sheath was then split and divided. A portion of the flexor tendon sheath was excised to minimize risk for recurrence and there was a significant eloina unt of synovial fluid noted consistent with increased tenosynovitis. Flexor tendons were brought out through the incision using a Ragnell and there was full excursion of the tendons without any trigger ing noted. The wounds were then irrigated and the tendon sheath was then irrigated thoroughly with n ormal saline. Skin was approximated using a 5-0 Prolene. Sterile dressings were applied. Tournique t was let down. The patient was transferred to PACU in stable condition. Postoperative Plan: The patient will work on range of motion exercises at home and follow up in clin ic in 1 week for suture removal. MARIA/ALIA Voice ID: [id number] Report ID: [id number]
== END 2019-07-31 14:20 | disposition home or self-care (01) ==
LOC: OR 08:22
PROVIDERS: ATTEND Orthopaedic Surgery Sports Medicine
PROC: 0LN80ZZ Release Left Hand Tendon, Open Approach (ICD-10-PCS; 2019-07-31)
PROC: 0LN80ZZ Release Left Hand Tendon, Open Approach (ICD-10-PCS; principal; 2019-07-31 10:00)
DX: M65.332 Trigger finger, left middle finger (principal); M65.342 Trigger finger, left ring finger; E11.9 Type 2 diabetes mellitus without complications; I10 Essential (primary) hypertension; Z79.82 Long term (current) use of aspirin; Z88.0 Allergy status to penicillin; Z83.3 Family history of diabetes mellitus; Z82.49 Family history of ischemic heart disease and other diseases of the circulatory system
CPT/HCPCS: 93005; 85025; 80048; 36415; 85610; 82947 ×2; 85730; 26055 ×2; J2704; J2250; J3010; J0690; J7030; J2405

== ENCOUNTER 2024-06-26 07:30 | Day surgery (SDC) | payer OTHER ==
[2024-06-24 08:54] LABS: Absolute Basophils 0.1 K/uL (0-0.5); Absolute Eosinophils 0.1 K/uL (0-0.5); Absolute Lymphocytes (CBC) 1.8 K/uL (0.7-4.9); Absolute Monocytes 0.5 K/uL (0.1-1.3); Absolute Neutrophil 2.3 K/uL (1.8-8.0); Basophils % 1.1 % (0-1.3); Hemoglobin 12.9 g/dL (12.0-15.0); Lymphocytes % 37.9 % (15.3-44.8); MCHC 33.9 g/dL (32.0-36.0); MCV 88.5 fL (80-100); MPV 8.3 fL (7.6-11.3); Monocytes % 10.5 % (3.3-12.3); Neutrophils % 47.5 % (41.7-73.7); Platelets 220 thou/uL (152-406); RBC Red Blood Cell Count 4.29 M/uL (3.86-4.86); Red Cell Distribution Width 13.2 % (12.1-15.2)
[2024-06-24 08:57] LABS: PT Prothrombin Time 11.8 SECONDS (9.4-12.5); PTT, Activated Partial Thromb 32.4 SECONDS (24.3-36.9); Protime INR 1.06
--- NOTE | 2024-06-24 09:00 | RAD REPORT ---
EXAMINATION: TWO VIEW CHEST XR CLINICAL INDICATION: pre op for day surgery TECHNIQUE: 2 views of the chest was performed. COMPARISON: 10/13/2018 FINDINGS: The lungs are hyperexpanded suggesting COPD. The heart is normal in size. No displaced fractures evid ent. IMPRESSION: COPD is suspected without acute finding identified. The USPSTF recommends annual screening for lung cancer with low-dose computed tomography (LDCT) in ad ults aged 50 to 80 years who have a 20 pack-year smoking history and currently smoke or have quit within the past 15 years. Screening should be discontinued once a person has not smoked for 15 years or develops a health problem that substantially limits life expectancy or the ability or willingness to have curative lung surgery.
[2024-06-24 09:10] LABS: Anion Gap 8.3 mEq/L (5.0-15.0); Potassium 4.3 mEq/L (3.5-5.1)
[2024-06-26] MEDS: BUPIVACAINE 0.25% PF 10 ML VIAL ONE (08:00)
[2024-06-26] MEDS: CEFAZOLIN SODIUM 1 GM/VIAL ONE (08:00)
[2024-06-26] MEDS ORDERED: propofoL 200 MG/20 ML VIAL IV ONE (08:09)
[2024-06-26] MEDS ORDERED: FENTANYL CITR 100 MCG/2 ML ONE (08:09)
[2024-06-26] MEDS ORDERED: ONDANSETRON 4 MG/2 ML VIAL ONE (08:09)
[2024-06-26] MEDS ORDERED: LIDOCAINE 2% MPF 5 ML VIAL ONE (08:09)
[2024-06-26] MEDS: NA CHLORIDE 0.9% 1,000 ML ONE (08:25)
[2024-06-26] MEDS ORDERED: dexAMETHasone 10 MG/ML VIAL ONE (08:45)
[2024-06-26] MEDS: CEFAZOLIN SODIUM 1 GM/VIAL IVP ONE (08:47)
[2024-06-26] MEDS: BUPIVACAINE 0.25% PF 10 ML VIAL IJ ONE ×2 (09:02→09:17)
--- NOTE | 2024-06-26 09:32 | P.BOP ---
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
[2024-06-26] MEDS: HYDROMORPHONE HCL 1 MG/ML INJ ONE (09:50)
[2024-06-26 10:51] VITALS: BP 152/77
[2024-06-26 10:57] VITALS: O2SAT 98
--- NOTE | 2024-06-26 14:58 | EKG ---
Test Date: 2024-06-24 Test Time: 08:32:30 [place] [employer]: CLARENCE MEASUREMENT RESULTS: Intervals: Rate: 78 SC: 146 QRSD: 96 QT: 414 QTc: 471 [place]: P: -14 SC: 146 QRS: 66 T: 42 INTERPRETIVE STATEMENTS: Normal sinus rhythm Normal ECG Compared to ECG 07/23/2019 10:08:03 Sinus arrhythmia no longer present Electronically Signed On 06-26-24 14:48:46 CDT by Norman Castaneda
--- NOTE | 2024-06-26 21:16 | OP ---
Date of Procedure: 06/26/2024 Surgeon: Won Rg MD Preoperative Diagnosis: Right index, middle, and ring finger trigger digits. Postoperative Diagnosis: Right index, middle, and ring finger trigger digits. Procedure Performed: Right index, middle, and ring finger A1 veronica release. Anesthesia: General LMA. Fluids: Per Anesthesia record. Estimated Blood Loss: 3 cc. Complications: None. Tourniquet Time: 23 minutes at 250 mmHg. Indication For Procedure: Ms. Jacobs is a 73-year-old female who presented to my clinic with signs a nd symptoms and physical exam findings consistent with a right index, middle, and ring finger trigger digits. The patient failed conservative treatment measures including corticosteroid injections. Jose mcmullen's symptoms interfered with her activities of daily living. I discussed with the patient at [facility] risks and benefits associated with operative and nonoperative treatment measures. She expressed understanding and elected to proceed with operative treatment. Description Of Procedure: After informed consent was obtained, patient was identified in the preoper ative holding area. The right index, middle, and ring fingers were marked. The patient was then bro ught back to the operating room, transferred to the operating table in supine fashion, placed under g eneral LMA anesthesia. The right upper extremity was then prepped and draped in the usual sterile fa shion. A time-out was initiated. The correct patient and procedure were confirmed and identified. The patient received preoperative prophylactic antibiotics. Attention was first taken to the ring fi nger where A1 veronica was excised to minimize risk for recurrence. The tendon was then bro ught out to the incision. There was full excursion of the tendon without triggering noted. The woun d was then irrigated thoroughly with normal saline and skin was approximated using a 5-0 Prolene. Ne xt, attention was taken to the middle finger, where a 1.5 cm incision was made. Dissection was then taken down at the flexor tendon sheath, which was split and divided in line with the incision. A por tion of the A1 veronica was excised to minimize risk for recurrence. The tendon was then brought out t o the incision using Ragnell retractors and there was full excursion of the tendon without triggering noted. The wound was then irrigated thoroughly with normal saline and skin was approximated using a 5-0 Prolene. Next, attention was taken to the index finger where approximately 1.5 cm longitudinal incision was made centered over the A1 veronica. Dissection was then taken down to the A1 veronica, whic h was split and divided in line with the incision. A portion of the A1 veronica was excised to minimiz e risk for recurrence. The tendon was then brought out to the incision. There was full excursion of the tendon without triggering. Wound was then irrigated thoroughly with normal saline and skin was approximated using a 5-0 Prolene. Sterile dressings were applied. Tourniquet was let down and patie nt was awakened and transferred to PACU in stable condition. Postoperative Plan: The patient will be nonweightbearing of her right upper extremity. She will beg in working on range of motion exercises. She will follow up in clinic in 10 days for suture removal. MARIA/ALIA Voice ID: [id number] Report ID: [id number]
== END 2024-06-26 10:55 | disposition home or self-care (01) ==
LOC: OR 07:30
PROVIDERS: ATTEND Orthopaedic Surgery Sports Medicine
PROC: 0LN70ZZ Release Right Hand Tendon, Open Approach (ICD-10-PCS; 2024-06-26)
PROC: 0LN70ZZ Release Right Hand Tendon, Open Approach (ICD-10-PCS; 2024-06-26)
PROC: 0LN70ZZ Release Right Hand Tendon, Open Approach (ICD-10-PCS; principal; 2024-06-26 08:38)
DX: M65.321 Trigger finger, right index finger (principal); M65.331 Trigger finger, right middle finger; M65.341 Trigger finger, right ring finger
CPT/HCPCS: 93005; 85025; 80048; 36415; 85610; 82947 ×2; 85730; 71046; 26055 ×3; J2704; J2003; J3010; J1100; J1171; J2405; J7030; J0690 ×2